=== PATIENT | male | born 1950 | race Caucasian/White ===

== ENCOUNTER 2021-01-28 11:43 | Outpatient (CLI) | payer MEDICARE, SELFPAY ==
--- NOTE | ~2021-01-28 | US_ITS ---
EXAMINATION: US venous doppler LE RT DATE: 01/28/2021 12:27 INDICATION: Right lower limb swelling TECHNIQUE: Grayscale ultrasound images without and with compression and Doppler ultrasound images of the right lower extremity veins were obtained. COMPARISON: None. FINDINGS: Noncompressible occlusive appearing thrombus in the right femoral vein. There appears to be a second small collateral patent right femoral vein. There is additional nonocclusive thrombus in the partiall y compressible right popliteal vein. The visualized portions of right common femoral vein, profunda ( deep) femoral vein, gastrocnemius vein, posterior tibial veins, peroneal veins and greater saphenous vein outflow are patent. IMPRESSION: 1. Occlusive deep venous thrombosis in the right femoral vein and partially occlusive thrombus in th e right popliteal vein. Reviewed, dictated and finalized at location A. [facility] IMPRESSION: 1. Occlusive deep venous thrombosis in the right femoral vein and partially oc clusive thrombus in the right popliteal vein.
== END 2021-01-28 11:44 | disposition home or self-care (01) ==
LOC: ANHIMG 11:47
PROVIDERS: PCP Family Medicine Adolescent Medicine; Visit Provider Physician Assistant
DX: M79.89 Other specified soft tissue disorders (principal); I82.411 Acute embolism and thrombosis of right femoral vein; I82.431 Acute embolism and thrombosis of right popliteal vein
CPT/HCPCS: 93971

== ENCOUNTER 2021-08-17 14:58 | Outpatient (CLI) | payer MEDICARE, SELFPAY ==
--- NOTE | ~2021-08-17 | US_ITS ---
EXAMINATION: US venous doppler LE RT DATE: 08/17/2021 16:00 INDICATION: Right lower limb pain and swelling. Other specified soft tissue disorders. TECHNIQUE: Grayscale ultrasound images without and with compression and Doppler ultrasound images of the right lower extremity veins were obtained. COMPARISON: Ultrasound 01/28/2021 FINDINGS: The visualized portions of right common femoral vein, profunda (deep) femoral vein, femoral vein, pop liteal vein, peroneal veins, posterior tibial veins, and greater saphenous vein outflow are patent. IMPRESSION: 1. No deep venous thrombosis. Reviewed, dictated and finalized at location B.
== END 2021-08-17 14:59 | disposition home or self-care (01) ==
PROVIDERS: PCP Family Medicine Adolescent Medicine; Visit Provider Physician Assistant
DX: M79.89 Other specified soft tissue disorders (principal)
CPT/HCPCS: 93971

== ENCOUNTER 2022-08-14 00:12 | Day surgery (SDC) | payer MEDICARE, SELFPAY ==
[2022-08-07 10:06] VITALS: BMI 37.3
--- NOTE | 2022-08-14 08:00 | WPDANESEPPF ---
Anes - Initial Pre Proc Eval Procedure: Operation Date: 08/14/22 09:45 Proposed Procedures p Colonoscopy - Justino Ocampo MD Date/Time: 08/14/22 08:00 Surgeon: Justino Ocampo MD Pre Op Diagnosis: hx colon polyps Patient Data Age: 71 Gender: M Height: 1.78 m Weight: 118 kg Allergies Allergy/AdvReac Type Severity Reaction Status Date / Time No Known Allergies Allergy Mild Verified 08/14/22 08:23 Home Medications Medication Instructions Recorded Confirmed Type lisinopril 20 mg tablet See Rx Instructions .Route 12/25/21 08/14/22 Rx .COMPLEX #90 tabs ascorbic acid (vitamin C) 500 mg 500 mg PO DAILY 06/29/22 08/14/22 History capsule,extended release (Vitamin C) aspirin 81 mg tablet,delayed 81 mg PO DAILY 06/29/22 08/14/22 History release calcium polycarbophil 625 mg 1,250 mg PO DAILY 06/29/22 08/14/22 History tablet (Fiber (calcium polycarbophil)) calcium-vitamin D3-vitamin K 500 500 tablet PO DAILY 06/29/22 08/14/22 History mg-200 unit-40 mcg chewable tablet magnesium 200 mg tablet 200 mg PO DAILY 06/29/22 08/14/22 History vitamin B complex (B 1 tablet PO DAILY 06/29/22 08/14/22 History Complex-Vitamin B12 tablet) Patient hx anesthesia problems: none Family hx anesthesia problems: none Results Review: All pre-operative results and documents have been reviewed as part of the pre-operative evaluation. [facility] Past Medical History Medical History (Updated 08/14/22 @ 08:01 by Stephan Richmond DO) Abnormal results of liver function studies Elevated liver enzymes Essential (primary) hypertension History of deep venous thrombosis (DVT) of distal vein of right lower extremity 01/23 Surgical History Surgical History H/O adenoidectomy Hx of appendectomy Hx of cholecystectomy 2005 Hx of tonsillectomy Family History Family History Father Cerebrovascular accident Heart disease Mother Dementia Sibling Esophageal cancer Social History Social History Years smoked: 23 Smoking status: Former smoker Tobacco type: cigarettes Second hand tobacco smoke exposure: No Smoking end date: 03/05/89 Alcohol intake: current Alcohol use details: rarely Substance use: never Substance use type: does not use Living arrangements: alone Occupation/Education: occupation Gender identity (if verbalized by the patient): Male Spiritual care concerns: No Agree to blood products: Yes Anes - Eval Final PreProcedure Day of Procedure 08/14/22 08:00 Patient weight: obese Heart: regular rate and rhythm Lungs: clear to auscultation Airway: Mallampati scale class II Neurological: alert and oriented Last oral intake: >/= 8 hours ASA classification: III Emergent: no Anesthetic plan: proceed Anesthesia type and monitoring: general GIVS and standard monitoring Results Review: All pre-operative results and documents have been reviewed as part of the pre-operative evaluation. Informed Consent: The patient's anesthetic plan and its attendant risks and benefits were discussed with the patient/family/POA. Questions were solicited and answers provided to the satisfaction of the patient/family/POA.
[2022-08-14 08:24] VITALS: BP 143/64; PULSE 59; RESP 20; TEMP 36.2; O2SAT 99; BMI 37.8
[2022-08-14] MEDS: LACTATED RINGERS 1,000 ML 150 ML IV CONT (09:03)
--- NOTE | 2022-08-14 09:15 | PM.HPGS ---
History of Present Illness History of Present Illness Consent: Risks, benefits, and alternatives have been discussed and questions answered. Patient agrees to proceed with procedure. Chief complaint: hx colon polyps Narrative: Christiano Lucas is a 71 year old male with colon polyp 5-6 years ago Review of Systems Constitutional: Constitutional: Denies headache(s) and Denies weakness Eyes: Eyes: Denies blurry vision ENT: Reports Normal hearing present, Denies headache(s) and Denies neck pain Cardiovascular: Cardiovascular: Denies chest pain and Denies dyspnea Respiratory: Respiratory: Denies dyspnea Gastrointestinal: Gastrointestinal: Reports no additional gastrointestinal complaints Genitourinary: Genitourinary: Denies dysuria Musculoskeletal: Musculoskeletal: Denies neck pain Integumentary/Breasts: Skin/Breast: Denies dry skin Neurologic: Reports Normal hearing present, Denies headache(s) and Denies weakness Psychiatric: Psychiatric: Denies anxiety Endocrine: Endocrine: Denies change in body appearance Hematologic/Lymphatic: Hematologic/Lymphatic: Denies easy bleeding Allergic/Immunologic: Allergic/Immunologic: Denies urticaria PMF Past Medical History Medical History (Updated 08/14/22 @ 09:16 by Justino Ocampo MD) Abnormal results of liver function studies Colon polyp Elevated liver enzymes Essential (primary) hypertension History of deep venous thrombosis (DVT) of distal vein of right lower extremity 01/23 Surgical History Surgical History H/O adenoidectomy Hx of appendectomy Hx of cholecystectomy 2006 Hx of tonsillectomy Family History Family History Father Cerebrovascular accident Heart disease Mother Dementia Sibling Esophageal cancer Social History Social History Years smoked: 23 Smoking status: Former smoker Tobacco type: cigarettes Second hand tobacco smoke exposure: No Smoking end date: 03/05/89 Alcohol intake: current Alcohol use details: rarely Substance use: never Substance use type: does not use Living arrangements: alone Occupation/Education: occupation Gender identity (if verbalized by the patient): Male Spiritual care concerns: No Agree to blood products: Yes Meds Home Medications and Allergies Home Medications Medication Instructions Recorded Confirmed Type lisinopril 20 mg tablet See Rx Instructions .Route 12/25/21 08/14/22 Rx .COMPLEX #90 tabs ascorbic acid (vitamin C) 500 mg 500 mg PO DAILY 06/29/22 08/14/22 History capsule,extended release (Vitamin C) aspirin 81 mg tablet,delayed 81 mg PO DAILY 06/29/22 08/14/22 History release calcium polycarbophil 625 mg 1,250 mg PO DAILY 06/29/22 08/14/22 History tablet (Fiber (calcium polycarbophil)) calcium-vitamin D3-vitamin K 500 500 tablet PO DAILY 06/29/22 08/14/22 History mg-200 unit-40 mcg chewable tablet magnesium 200 mg tablet 200 mg PO DAILY 06/29/22 08/14/22 History vitamin B complex (B 1 tablet PO DAILY 06/29/22 08/14/22 History Complex-Vitamin B12 tablet) Allergies Allergy/AdvReac Type Severity Reaction Status Date / Time No Known Allergies Allergy Mild Verified 08/14/22 08:23 Vital Signs Vital Signs - 24 hr 08/14/22 08:24 Temperature 97.2 F L Pulse Rate 59 L Respiratory Rate 20 Blood Pressure 143/64 H Pulse Oximetry 99 Oxygen Delivery Room Air Exam Const: General: comfortable and no acute distress HENMT: Face/Nose/Sinus: Normal nares present Eyes: General: appearance normal, both eyes and all related structures Neck: Neck: no JVD Resp: Auscultation: clear to auscultation bilaterally Cardio: Rate: regular rate Rhythm: regular rhythm GI: Inspection: non-distended GI Palp: Yes Soft to
[2022-08-14 09:34] VITALS: BP 106/46; PULSE 61; RESP 20; O2SAT 98
[2022-08-14 09:44] VITALS: BP 117/48; PULSE 60; RESP 18; O2SAT 98
[2022-08-14 09:54] VITALS: BP 128/48; PULSE 56; RESP 19; O2SAT 98
== END 2022-08-14 10:04 | disposition home or self-care (01) ==
PROVIDERS: PCP Family Medicine Adolescent Medicine; Visit Provider Internal Medicine Gastroenterology
PROC: 0DJD8ZZ Inspection of Lower Intestinal Tract, Via Natural or Artificial Opening Endoscopic (ICD-10-PCS; CPT 45378; principal; 2022-08-14 09:45)
DX: Z12.11 Encounter for screening for malignant neoplasm of colon (principal); K64.8 Other hemorrhoids; Z86.010 Personal history of colon polyps; I10 Essential (primary) hypertension; Z79.82 Long term (current) use of aspirin; Z86.718 Personal history of other venous thrombosis and embolism; Z87.891 Personal history of nicotine dependence; E66.9 Obesity, unspecified; Z68.37 Body mass index [BMI] 37.0-37.9, adult
CPT/HCPCS: G0105; J2704; J7120